=== PATIENT | female | born 1935 | race Caucasian/White ===

== ENCOUNTER 2016-02-09 07:04 | Inpatient (IN) | payer OTHER ==
[~2016-02-09] VITALS: Ht 170.2 cm; Wt 88.8 kg
[~2016-02-09 07:04] MED LIST: ALLOPURINOL300 MG PO; ANTIVERT25 MG PO; ASPIRIN81 M2 PO; AVAPRO75 MG PO; CLARITIN10 M3 PO; COUMADIN,JANTO2.5 MG PO; Coumadin,Jantoven PO; FERROUS SULFAT325 MG PO; IPRATROPIUM BRO30 ML BOTH NARES; METOPROLOL SUCC50 MG PO; PRESERVISION T1 EACH PO; SIMVASTATIN10 M1 PO; TOPROL XL100 MG PO; TOPROL XL50 MG PO; TYLENOL EXTRA500 MG PO; VITAMIN D31000 UNIT PO; VITAMIN D32000 UNI1 PO; WARFARIN SODIUM5 MG PO; eye vitamin
[2016-02-09 07:43] VITALS: BP 166/86
[2016-02-09 08:50] LABS: INTER. NORMALIZED RATIO 1.1; PROTHROMBIN TIME 11.7 (9.2-11.2)
[2016-02-09 13:55] VITALS: BP 143/59
[2016-02-09 15:37] VITALS: BP 115/61
[2016-02-09 19:30] VITALS: BP 117/68
[2016-02-09 23:30] VITALS: BP 120/82
[2016-02-10 04:00] VITALS: BP 135/90
[2016-02-10 05:36] LABS: HEMATOCRIT 33.5 % (36.0-46.0)
[2016-02-10 05:44] LABS: INTER. NORMALIZED RATIO 1.2; PROTHROMBIN TIME 12.2 (9.2-11.2)
[2016-02-10 06:01] LABS: ANION GAP 12 MEQ/L (2-14); CHLORIDE 106 MEQ/L (99-109); GFR ESTIMATE (CALCULATED) 51 mL/min/; GLUCOSE 126 mg/dL (70-99); POTASSIUM 4.3 MEQ/L (3.7-5.4); SAMPLE HEMOLYSIS CHECK 0; SAMPLE ICTERIC CHECK 0; SAMPLE LIPEMIA CHECK 0; SODIUM 138 MEQ/L (136-147); UREA NITROGEN (BUN) 25 mg/dL (9-23)
[2016-02-10 08:00] VITALS: BP 159/82
[2016-02-10 12:00] VITALS: BP 147/87
[2016-02-10 15:54] VITALS: BP 123/60
[2016-02-10 20:03] VITALS: BP 148/78
[2016-02-10 21:30] LABS: INTER. NORMALIZED RATIO 1.3; PROTHROMBIN TIME 13.2 (9.2-11.2); PTT 30.6 (25-32)
[2016-02-10 21:43] LABS: HEMATOCRIT 31.9 % (36.0-46.0); MCHC 32.9 G/DL (30.0-36.0); MCV 103.2 FL (83-99); MEAN PLAT.VOLUME 13.8 uM^3 (9.5-12.4); PLATELET COUNT 125 K/uL (156-360); RBC DIS.WIDTH-CV 14.5 % (11.8-14.6); RBC DIS.WIDTH-SD 54.3 % (39-53); RED BLOOD COUNT 3.09 M/uL (3.80-5.20)
[2016-02-10 21:44] LABS: WHITE BLOOD COUNT 13.7 K/uL (4.1-10.2)
[2016-02-10 23:25] VITALS: BP 137/77
[2016-02-11] VITALS (7 sets, daily range): BP systolic 127–148; BP diastolic 60–92
[2016-02-11 06:19] LABS: EOSINOPHIL (%) 0.1 % (0-5); IMMATURE GRANULOCYTE (%) 0.3 % (0.0-0.7); LYMPHOCYTE COUNT 1.1 K/uL (1.0-2.8); MONOCYTE (%) 10.7 % (3-12); MONOCYTE COUNT 1.3 K/uL (0-0.8); NEUTROPHIL (%) 79.2 % (45-76); NEUTROPHIL COUNT 9.4 K/uL (1.8-6.4)
[2016-02-11 06:25] LABS: INTER. NORMALIZED RATIO 1.3; PROTHROMBIN TIME 13.7 (9.2-11.2)
[2016-02-11 06:44] LABS: ANION GAP 9 MEQ/L (2-14); CHLORIDE 105 MEQ/L (99-109); GFR ESTIMATE (CALCULATED) 56 mL/min/; GLUCOSE 118 mg/dL (70-99); POTASSIUM 4.3 MEQ/L (3.7-5.4); SAMPLE HEMOLYSIS CHECK 0; SAMPLE ICTERIC CHECK 0; SAMPLE LIPEMIA CHECK 0; SODIUM 135 MEQ/L (136-147); UREA NITROGEN (BUN) 34 mg/dL (9-23)
[2016-02-11 07:38] LABS: HEMATOLOGY COMMENT 1 REV; USER ID NJR
[2016-02-11 07:41] LABS: HEMATOCRIT 28.7 % (36.0-46.0); MCH 34.4 PG (29.0-34.0); MCHC 33.4 G/DL (30.0-36.0); MCV 102.9 FL (83-99); MEAN PLAT.VOLUME 13.7 uM^3 (9.5-12.4); PLATELET COUNT 121 K/uL (156-360); RBC DIS.WIDTH-CV 14.7 % (11.8-14.6); RBC DIS.WIDTH-SD 55.3 % (39-53); RED BLOOD COUNT 2.79 M/uL (3.80-5.20); WHITE BLOOD COUNT 11.8 K/uL (4.1-10.2)
[2016-02-11 17:14] LABS: EOSINOPHIL (%) 1.4 % (0-5); EOSINOPHIL COUNT 0.2 K/uL (0-0.3); HEMATOCRIT 29.8 % (36.0-46.0); IMMATURE GRANULOCYTE (%) 0.3 % (0.0-0.7); LYMPHOCYTE COUNT 1.5 K/uL (1.0-2.8); MCHC 33.2 G/DL (30.0-36.0); MCV 102.4 FL (83-99); MEAN PLAT.VOLUME 13.3 uM^3 (9.5-12.4); MONOCYTE (%) 11.8 % (3-12); MONOCYTE COUNT 1.6 K/uL (0-0.8); NEUTROPHIL (%) 74.6 % (45-76); NEUTROPHIL COUNT 9.8 K/uL (1.8-6.4); PLATELET COUNT 123 K/uL (156-360); RBC DIS.WIDTH-CV 14.6 % (11.8-14.6); RBC DIS.WIDTH-SD 54.3 % (39-53); RED BLOOD COUNT 2.91 M/uL (3.80-5.20); WHITE BLOOD COUNT 13.2 K/uL (4.1-10.2)
[2016-02-12 05:27] LABS: COLOR YELLOW ((YELLOW))
[2016-02-12 05:28] LABS: ADD MIUA? YES; BILIRUBIN NEGATIVE; BLOOD TRACE; GLUCOSE (STRIP) NEGATIVE; KETONES NEGATIVE; LEUKOCYTES NEGATIVE; NITRITE NEGATIVE; PH, URINE 5.5 (5-8); SPECIFIC GRAVITY 1.022 (1.000-1.030); UROBILINOGEN 0.2 MG/DL (0.2-1.0)
[2016-02-12 05:29] LABS: PROTEIN (STRIP) TRACE
[2016-02-12 05:42] LABS: CASTS NONE SEEN /LPF; EPITHELIAL CELLS NONE SEEN; MUCUS NONE SEEN
[2016-02-12 05:43] LABS: BACTERIA NONE SEEN; CRYSTALS NONE SEEN; RED BLOOD CELLS RARE /HPF (0-5); UCUL ADDED? NO; WHITE BLOOD CELLS NONE SEEN /HPF (0-5)
[2016-02-12 06:20] LABS: INTER. NORMALIZED RATIO 1.5; PROTHROMBIN TIME 15.9 (9.2-11.2)
[2016-02-12 08:16] LABS: ANION GAP 10 MEQ/L (2-14); CHLORIDE 104 MEQ/L (99-109); GFR ESTIMATE (CALCULATED) 56 mL/min/; GLUCOSE 112 mg/dL (70-99); POTASSIUM 4.2 MEQ/L (3.7-5.4); SAMPLE HEMOLYSIS CHECK 0; SAMPLE ICTERIC CHECK 0; SAMPLE LIPEMIA CHECK 0; SODIUM 136 MEQ/L (136-147); UREA NITROGEN (BUN) 34 mg/dL (9-23)
[2016-02-12 08:30] VITALS: BP 163/73
[2016-02-12 10:28] LABS: HEMATOCRIT 29.9 % (36.0-46.0); MCH 33.8 PG (29.0-34.0); MCHC 32.8 G/DL (30.0-36.0); MCV 103.1 FL (83-99); MEAN PLAT.VOLUME 13.5 uM^3 (9.5-12.4); PLATELET COUNT 130 K/uL (156-360); RBC DIS.WIDTH-CV 15.1 % (11.8-14.6); RBC DIS.WIDTH-SD 55.6 % (39-53); WHITE BLOOD COUNT 10.6 K/uL (4.1-10.2)
[2016-02-12 11:30] VITALS: BP 127/63
[2016-02-12 16:30] VITALS: BP 162/78
[2016-02-12 20:31] VITALS: BP 111/59
[2016-02-13 00:07] VITALS: BP 133/68
[2016-02-13 04:31] VITALS: BP 138/72
[2016-02-13 07:15] LABS: INTER. NORMALIZED RATIO 3.5; PROTHROMBIN TIME 36.8 (9.2-11.2)
[2016-02-13 08:21] VITALS: BP 130/59
[2016-02-13 11:30] VITALS: BP 112/53
[2016-02-13 15:30] VITALS: BP 154/67
[2016-02-13 20:29] VITALS: BP 135/62
[2016-02-14 00:16] VITALS: BP 139/81
[2016-02-14 03:49] VITALS: BP 148/84
[2016-02-14 05:56] LABS: INTER. NORMALIZED RATIO 1.6; PROTHROMBIN TIME 16.3 (9.2-11.2)
[2016-02-14 08:14] VITALS: BP 136/90
== END 2016-02-14 11:47 | DRG 469 ==
LOC: 2SOUTH 07:04 → 3WEST 07:04 → 2SOUTH 10:49 → 3WEST 13:32 → 2SOUTH 14:57 → 3WEST 02-11 06:59 → 3EAST 02-11 14:29
PROVIDERS: Hospitalist; Orthopaedic Surgery
PROC: 0SRC0J9 Replacement of Right Knee Joint with Synthetic Substitute, Cemented, Open Approach (ICD-10-PCS; principal; 2016-02-09)
DX: M17.11 Unilateral primary osteoarthritis, right knee (principal); G93.40 Encephalopathy, unspecified; K92.0 Hematemesis; R57.9 Shock, unspecified; I10 Essential (primary) hypertension; M21.061 Valgus deformity, not elsewhere classified, right knee; M10.9 Gout, unspecified; I48.2 Chronic atrial fibrillation; E78.5 Hyperlipidemia, unspecified; R41.0 Disorientation, unspecified; R33.9 Retention of urine, unspecified; M81.0 Age-related osteoporosis without current pathological fracture; T40.605A Adverse effect of unspecified narcotics, initial encounter; Z96.641 Presence of right artificial hip joint; Z96.652 Presence of left artificial knee joint; Z88.5 Allergy status to narcotic agent; Z95.0 Presence of cardiac pacemaker; Z85.3 Personal history of malignant neoplasm of breast; Z79.82 Long term (current) use of aspirin; Z80.1 Family history of malignant neoplasm of trachea, bronchus and lung; Z82.49 Family history of ischemic heart disease and other diseases of the circulatory system
CPT/HCPCS: 70450; 71010; 74176; 80048; 81003; 85014; 85018; 85025; 85025 91; 85027; 85610; 85730; 94799; 97530 GO; 97530 GP; C9113; J0690; J1885; J2060; J2250; J2370; J2405; J3010; J3370; J7030; J7050; J7120; S0020

== ENCOUNTER 2016-02-25 17:13 | Inpatient (IN) | payer OTHER ==
[~2016-02-25] VITALS: Ht 167.6 cm; Wt 87.0 kg
[2016-02-25] MEDS ORDERED: FEOSOL325 MG PO (17:51)
[2016-02-25] MEDS ORDERED: DULCOLAX10 MG PR (17:51)
[2016-02-25] MEDS ORDERED: FUROSEMIDE20 MG PO (17:52)
[2016-02-25] MEDS ORDERED: IPRATROPIUM BRO30 ML IH (17:52)
[2016-02-25] MEDS ORDERED: LORATADINE10 M2 PO (17:53)
[2016-02-25] MEDS ORDERED: LIDODERM 5% P1 PATCH TD (17:53)
[2016-02-25] MEDS ORDERED: METOPROLOL SUC100 MG PO (17:54)
[2016-02-25] MEDS ORDERED: MECLIZINE HCL25 MG PO (17:54)
[2016-02-25] MEDS ORDERED: METOPROLOL SUCC50 MG PO (17:55)
[2016-02-25] MEDS ORDERED: MILK OF MAGN PO (17:56)
[2016-02-25] MEDS ORDERED: PRESERVISION T1 EACH PO (17:57)
[2016-02-25] MEDS ORDERED: MIRALAX17 GM PO (17:57)
[2016-02-25] MEDS ORDERED: SIMETHICONE125 M1 PO (17:58)
[2016-02-25] MEDS ORDERED: TRAMADOL HCL50 MG PO (17:58)
[2016-02-25] MEDS ORDERED: TUMS500 MG PO (18:00)
[2016-02-25 18:23] LABS: EOSINOPHIL (%) 2.7 % (0-5); EOSINOPHIL COUNT 0.2 K/uL (0-0.3); HEMATOCRIT 29.7 % (36.0-46.0); IMMATURE GRANULOCYTE (%) 0.3 % (0.0-0.7); IMMATURE GRANULOCYTE COUNT 0.3 K/uL; LYMPHOCYTE COUNT 1.5 K/uL (1.0-2.8); MCH 33.4 PG (29.0-34.0); MCHC 33.3 G/DL (30.0-36.0); MCV 100.3 FL (83-99); MONOCYTE (%) 8.6 % (3-12); MONOCYTE COUNT 0.8 K/uL (0-0.8); NEUTROPHIL (%) 70.4 % (45-76); NEUTROPHIL COUNT 6.2 K/uL (1.8-6.4); RBC DIS.WIDTH-CV 15.5 % (11.8-14.6); RED BLOOD COUNT 2.96 M/uL (3.80-5.20)
[2016-02-25 18:30] LABS: MEAN PLAT.VOLUME 12.7 uM^3 (9.5-12.4); PLATELET COUNT 239 K/uL (156-360); WHITE BLOOD COUNT 8.8 K/uL (4.1-10.2)
[2016-02-25 18:33] LABS: CHLORIDE 97 mEq/L (99-109); POTASSIUM 4.6 mEq/L (3.7-5.4); SODIUM 129 mEq/L (136-147)
[2016-02-25 18:34] LABS: MAGNESIUM 1.8 mg/dL (1.3-2.7)
[2016-02-25 18:35] LABS: GLUCOSE 106 mg/dL (70-99)
[2016-02-25 18:36] LABS: ANION GAP 13 MEQ/L (2-14)
[2016-02-25 18:38] LABS: INTER. NORMALIZED RATIO 3.4; PROTHROMBIN TIME 35.5 (9.2-11.2); PTT 37.6 (25-32)
[2016-02-25 18:39] LABS: GFR ESTIMATE (CALCULATED) 38 mL/min/
[2016-02-25 18:40] LABS: UREA NITROGEN (BUN) 33 mg/dL (9-23)
[2016-02-25 18:47] LABS: TROP-I INTERPRETATION POSITIVE
[2016-02-25 18:55] LABS: TROPONIN-I 1.38 ng/mL (0.0-0.30)
[2016-02-25 22:00] VITALS: BP 115/59
[2016-02-26 01:57] LABS: TROP-I INTERPRETATION POSITIVE
[2016-02-26 01:58] LABS: TROPONIN-I 1.22 ng/mL (0.0-0.30)
[2016-02-26 03:28] VITALS: BP 113/65
[2016-02-26 07:10] VITALS: BP 118/67
[2016-02-26 08:59] LABS: ALKALINE PHOSPHATASE 67 IU/L (3-129); ANION GAP 12 MEQ/L (2-14); CHLORIDE 98 MEQ/L (99-109); GFR ESTIMATE (CALCULATED) 38 mL/min/; GLUCOSE 87 mg/dL (70-99); POTASSIUM 4.3 MEQ/L (3.7-5.4); SAMPLE HEMOLYSIS CHECK 0; SAMPLE ICTERIC CHECK 0; SAMPLE LIPEMIA CHECK 0; SODIUM 132 MEQ/L (136-147); UREA NITROGEN (BUN) 32 mg/dL (9-23)
[2016-02-26 09:01] LABS: HEMATOCRIT 29.3 % (36.0-46.0); MCHC 32.8 G/DL (30.0-36.0); MCV 100.7 FL (83-99); MEAN PLAT.VOLUME 12.7 uM^3 (9.5-12.4); PLATELET COUNT 225 K/uL (156-360); RBC DIS.WIDTH-CV 15.9 % (11.8-14.6); RED BLOOD COUNT 2.91 M/uL (3.80-5.20); WHITE BLOOD COUNT 7.8 K/uL (4.1-10.2)
[2016-02-26 09:03] VITALS: BP 104/67
[2016-02-26 09:10] LABS: TROP-I INTERPRETATION POSITIVE
[2016-02-26 11:51] LABS: INTER. NORMALIZED RATIO 3.8; PROTHROMBIN TIME 40.4 (9.2-11.2)
[2016-02-26 12:18] VITALS: BP 108/53
[2016-02-26 17:05] VITALS: BP 92/58
[2016-02-26 21:00] VITALS: BP 126/58
[2016-02-27 00:25] VITALS: BP 99/58
[2016-02-27 05:14] VITALS: BP 124/57
[2016-02-27 05:18] LABS: EOSINOPHIL COUNT 0.3 K/uL (0-0.3); HEMATOCRIT 28.2 % (36.0-46.0); IMMATURE GRANULOCYTE (%) 0.4 % (0.0-0.7); LYMPHOCYTE COUNT 1.7 K/uL (1.0-2.8); MCH 32.6 PG (29.0-34.0); MCHC 32.3 G/DL (30.0-36.0); MCV 101.1 FL (83-99); MEAN PLAT.VOLUME 12.6 uM^3 (9.5-12.4); MONOCYTE (%) 10.9 % (3-12); MONOCYTE COUNT 0.7 K/uL (0-0.8); NEUTROPHIL (%) 58.4 % (45-76); NEUTROPHIL COUNT 3.9 K/uL (1.8-6.4); PLATELET COUNT 216 K/uL (156-360); RBC DIS.WIDTH-SD 57.4 % (39-53); RED BLOOD COUNT 2.79 M/uL (3.80-5.20); WHITE BLOOD COUNT 6.7 K/uL (4.1-10.2)
[2016-02-27 05:43] LABS: ANION GAP 12 MEQ/L (2-14); CHLORIDE 99 MEQ/L (99-109); GFR ESTIMATE (CALCULATED) 42 mL/min/; GLUCOSE 105 mg/dL (70-99); POTASSIUM 3.6 MEQ/L (3.7-5.4); SAMPLE HEMOLYSIS CHECK 0; SAMPLE ICTERIC CHECK 0; SAMPLE LIPEMIA CHECK 0; SODIUM 134 MEQ/L (136-147); UREA NITROGEN (BUN) 32 mg/dL (9-23)
[2016-02-27 05:44] LABS: TROP-I INTERPRETATION POSITIVE
[2016-02-27 05:45] LABS: TROPONIN-I 0.68 ng/mL (0.0-0.30)
[2016-02-27 06:12] LABS: INTER. NORMALIZED RATIO 5.1; PROTHROMBIN TIME 54.7 (9.2-11.2)
[2016-02-27 09:30] VITALS: BP 109/56
[2016-02-27 12:49] VITALS: BP 107/61
[2016-02-27 15:45] VITALS: BP 116/57
[2016-02-27 20:42] VITALS: BP 104/58
[2016-02-28] VITALS (7 sets, daily range): BP systolic 105–126; BP diastolic 59–68
[2016-02-28 05:54] LABS: HEMATOCRIT 29.2 % (36.0-46.0); MCHC 32.9 G/DL (30.0-36.0); MCV 100.3 FL (83-99); MEAN PLAT.VOLUME 12.7 uM^3 (9.5-12.4); PLATELET COUNT 226 K/uL (156-360); RBC DIS.WIDTH-CV 16.4 % (11.8-14.6); RBC DIS.WIDTH-SD 58.4 % (39-53); RED BLOOD COUNT 2.91 M/uL (3.80-5.20); WHITE BLOOD COUNT 6.5 K/uL (4.1-10.2)
[2016-02-28 06:31] LABS: ANION GAP 12 MEQ/L (2-14); CHLORIDE 99 MEQ/L (99-109); GFR ESTIMATE (CALCULATED) 35 mL/min/; GLUCOSE 129 mg/dL (70-99); SAMPLE HEMOLYSIS CHECK 0; SAMPLE ICTERIC CHECK 0; SAMPLE LIPEMIA CHECK 0; SODIUM 136 MEQ/L (136-147); UREA NITROGEN (BUN) 30 mg/dL (9-23)
[2016-02-28 06:33] LABS: POTASSIUM 2.8 MEQ/L (3.7-5.4)
[2016-02-28 06:37] LABS: ABS NEUTROPHIL COUNT 4.31; ANISOCYTOSIS 2+; EOSINOPHIL ABS CT 0.85; MACROCYTES 1+; MICROCYTOSIS 1+; OVALOCYTES 1+; PLAT.SUFFICIENCY ADEQUATE; SPHEROCYTES 1+
[2016-02-28 06:43] LABS: INTER. NORMALIZED RATIO 3.7; PROTHROMBIN TIME 38.8 (9.2-11.2)
[2016-02-29 05:05] VITALS: BP 112/58
[2016-02-29 06:34] LABS: HEMATOCRIT 29.9 % (36.0-46.0); MCH 32.5 PG (29.0-34.0); MCHC 32.1 G/DL (30.0-36.0); MCV 101.4 FL (83-99); MEAN PLAT.VOLUME 12.6 uM^3 (9.5-12.4); PLATELET COUNT 214 K/uL (156-360); RBC DIS.WIDTH-CV 16.5 % (11.8-14.6); RBC DIS.WIDTH-SD 59.3 % (39-53); RED BLOOD COUNT 2.95 M/uL (3.80-5.20); WHITE BLOOD COUNT 6.8 K/uL (4.1-10.2)
[2016-02-29 06:48] LABS: INTER. NORMALIZED RATIO 2.7; PROTHROMBIN TIME 28.8 (9.2-11.2)
[2016-02-29 06:51] LABS: EOSINOPHIL (%) 5.6 % (0-5); EOSINOPHIL COUNT 0.4 K/uL (0-0.3); IMMATURE GRANULOCYTE (%) 0.4 % (0.0-0.7); LYMPHOCYTE COUNT 1.8 K/uL (1.0-2.8); MONOCYTE (%) 11.3 % (3-12); MONOCYTE COUNT 0.8 K/uL (0-0.8); NEUTROPHIL (%) 55.9 % (45-76); NEUTROPHIL COUNT 3.8 K/uL (1.8-6.4)
[2016-02-29 07:09] LABS: ANION GAP 14 MEQ/L (2-14); CHLORIDE 98 MEQ/L (99-109); GFR ESTIMATE (CALCULATED) 35 mL/min/; GLUCOSE 103 mg/dL (70-99); SAMPLE HEMOLYSIS CHECK 0; SAMPLE ICTERIC CHECK 0; SAMPLE LIPEMIA CHECK 0; SODIUM 137 MEQ/L (136-147); UREA NITROGEN (BUN) 28 mg/dL (9-23)
[2016-02-29 07:11] VITALS: BP 115/65
[2016-02-29 07:18] LABS: POTASSIUM 3.5 MEQ/L (3.7-5.4)
[2016-02-29 12:33] VITALS: BP 116/76
[2016-02-29 16:28] VITALS: BP 142/66
[2016-02-29 19:40] VITALS: BP 118/65
[2016-03-01] VITALS: BP 99/62
[2016-03-01 04:00] VITALS: BP 103/63
[2016-03-01 06:41] LABS: HEMATOCRIT 28.2 % (36.0-46.0); MCHC 32.3 G/DL (30.0-36.0); MCV 102.2 FL (83-99); MEAN PLAT.VOLUME 12.9 uM^3 (9.5-12.4); PLATELET COUNT 183 K/uL (156-360); RBC DIS.WIDTH-CV 16.8 % (11.8-14.6); RBC DIS.WIDTH-SD 60.9 % (39-53); RED BLOOD COUNT 2.76 M/uL (3.80-5.20); WHITE BLOOD COUNT 5.4 K/uL (4.1-10.2)
[2016-03-01 06:47] LABS: INTER. NORMALIZED RATIO 2.1; PROTHROMBIN TIME 21.6 (9.2-11.2)
[2016-03-01 06:56] LABS: ANION GAP 11 MEQ/L (2-14); CHLORIDE 101 MEQ/L (99-109); POTASSIUM 3.3 MEQ/L (3.7-5.4); SAMPLE HEMOLYSIS CHECK 0; SAMPLE ICTERIC CHECK 0; SAMPLE LIPEMIA CHECK 0; SODIUM 139 MEQ/L (136-147)
[2016-03-01 07:02] LABS: GFR ESTIMATE (CALCULATED) 33 mL/min/; GLUCOSE 97 mg/dL (70-99); UREA NITROGEN (BUN) 25 mg/dL (9-23)
[2016-03-01 07:08] LABS: EOSINOPHIL (%) 6.9 % (0-5); EOSINOPHIL COUNT 0.4 K/uL (0-0.3); IMMATURE GRANULOCYTE (%) 0.4 % (0.0-0.7); LYMPHOCYTE COUNT 1.6 K/uL (1.0-2.8); MONOCYTE (%) 10.9 % (3-12); MONOCYTE COUNT 0.6 K/uL (0-0.8); NEUTROPHIL COUNT 2.8 K/uL (1.8-6.4)
[2016-03-01 07:23] VITALS: BP 124/70
[2016-03-01 11:56] VITALS: BP 111/59
[2016-03-01 20:30] VITALS: BP 101/71
[2016-03-01 23:09] VITALS: BP 128/65
[2016-03-02] VITALS (7 sets, daily range): BP systolic 99–112; BP diastolic 55–64
[2016-03-02 07:26] LABS: PROTHROMBIN TIME 21.1 (9.2-11.2)
[2016-03-02 07:50] LABS: ANION GAP 11 MEQ/L (2-14); CHLORIDE 99 MEQ/L (99-109); GFR ESTIMATE (CALCULATED) 38 mL/min/; GLUCOSE 94 mg/dL (70-99); POTASSIUM 3.2 MEQ/L (3.7-5.4); SAMPLE HEMOLYSIS CHECK 0; SAMPLE ICTERIC CHECK 0; SAMPLE LIPEMIA CHECK 0; SODIUM 138 MEQ/L (136-147); UREA NITROGEN (BUN) 25 mg/dL (9-23)
[2016-03-02] MEDS ORDERED: CLEOCIN150 MG PO (10:37)
[2016-03-02] MEDS ORDERED: PANTOPRAZOLE SO40 MG PO (10:38)
[2016-03-02] MEDS ORDERED: KLOR-CON SPRIN10 MEQ PO (10:47)
[2016-03-02] MEDS ORDERED: FUROSEMIDE40 MG PO (10:47)
== END 2016-03-02 18:34 | DRG 292 ==
LOC: EME → EDBD 17:13 → EME 17:13 → 4EAST 20:48 → EDOF 20:48 → 4EAST 21:52
PROVIDERS: Emergency Medicine; Internal Medicine; Internal Medicine Cardiovascular Disease
PROC: 30233N1 Transfusion of Nonautologous Red Blood Cells into Peripheral Vein, Percutaneous Approach (ICD-10-PCS; principal; 2016-03-02)
DX: I11.0 Hypertensive heart disease with heart failure (principal); I50.9 Heart failure, unspecified; N17.9 Acute kidney failure, unspecified; I24.8 Other forms of acute ischemic heart disease; I45.2 Bifascicular block; L03.115 Cellulitis of right lower limb; E87.6 Hypokalemia; I48.2 Chronic atrial fibrillation; I25.10 Atherosclerotic heart disease of native coronary artery without angina pectoris; E78.5 Hyperlipidemia, unspecified; M10.9 Gout, unspecified; I35.0 Nonrheumatic aortic (valve) stenosis; I27.2 Other secondary pulmonary hypertension; D64.9 Anemia, unspecified; G43.909 Migraine, unspecified, not intractable, without status migrainosus; G89.29 Other chronic pain; Z96.653 Presence of artificial knee joint, bilateral; Z96.641 Presence of right artificial hip joint; Z95.0 Presence of cardiac pacemaker; Z79.82 Long term (current) use of aspirin; Z88.5 Allergy status to narcotic agent; Z85.3 Personal history of malignant neoplasm of breast; Z95.5 Presence of coronary angioplasty implant and graft; Z79.01 Long term (current) use of anticoagulants
CPT/HCPCS: 71010; 80048; 80053; 83735; 84484; 85025; 85027; 85610; 85730; 86850; 86900; 86901; 86920; 93005; 99281; 99285; G0378; J1940; J3480; P9016

== ENCOUNTER 2016-03-14 16:36 | Inpatient (IN) | payer OTHER ==
[~2016-03-14] VITALS: Ht 170.2 cm; Wt 93.7 kg
[~2016-03-14 16:36] MED LIST changes: +CLEOCIN150 MG PO; +DULCOLAX10 MG PR; +FEOSOL325 MG PO; +FUROSEMIDE20 MG PO; +FUROSEMIDE40 MG PO; +IPRATROPIUM BRO30 ML IH; +KLOR-CON SPRIN10 MEQ PO; +LIDODERM 5% P1 PATCH TD; +LORATADINE10 M2 PO; +MECLIZINE HCL25 MG PO; +METOPROLOL SUC100 MG PO; +MILK OF MAGN PO; +MIRALAX17 GM PO; +PANTOPRAZOLE SO40 MG PO; +SIMETHICONE125 M1 PO; +TRAMADOL HCL50 MG PO; +TUMS500 MG PO
[2016-03-14 17:44] LABS: BASE EXCESS -3.7 mEq/L (-3 to +3); BICARBONATE 20.4 mEq/L (22-26); CARBOXY HGB 1.8 % (0-5); COMMENTS - BLOOD GASES A+C+; DEVICE NC; O2 FLOW 6 L/MIN; PCO2 33 mm Hg (35-45); PO2 149 mm Hg (80-100); SITE LR; TOTAL RESP RATE 20 resp/min
[2016-03-14 17:54] LABS: BASOPHIL COUNT 0.1 K/uL (0-0.1); EOSINOPHIL (%) 4.8 % (0-5); EOSINOPHIL COUNT 0.4 K/uL (0-0.3); IMMATURE GRANULOCYTE (%) 0.1 % (0.0-0.7); IMMATURE GRANULOCYTE COUNT 0.1 K/uL; MCH 32.8 PG (29.0-34.0); MCHC 32.1 G/DL (30.0-36.0); MCV 102.2 FL (83-99); MONOCYTE (%) 12.3 % (3-12); MONOCYTE COUNT 1.1 K/uL (0-0.8); NEUTROPHIL (%) 59.3 % (45-76); NEUTROPHIL COUNT 5.1 K/uL (1.8-6.4); RBC DIS.WIDTH-CV 16.7 % (11.8-14.6); RBC DIS.WIDTH-SD 59.7 % (39-53); RED BLOOD COUNT 3.23 M/uL (3.80-5.20); WHITE BLOOD COUNT 8.6 K/uL (4.1-10.2)
[2016-03-14 17:57] LABS: CHLORIDE 104 mEq/L (99-109); INTER. NORMALIZED RATIO 3.2; POTASSIUM 4.7 mEq/L (3.7-5.4); PROTHROMBIN TIME 33.7 (9.2-11.2); PTT 36.5 (25-32); SODIUM 137 mEq/L (136-147)
[2016-03-14 17:58] LABS: MAGNESIUM 1.8 mg/dL (1.3-2.7)
[2016-03-14 17:59] LABS: GLUCOSE 109 mg/dL (70-99)
[2016-03-14 18:00] LABS: ANION GAP 12 MEQ/L (2-14)
[2016-03-14 18:03] LABS: GFR ESTIMATE (CALCULATED) 29 mL/min/
[2016-03-14 18:04] LABS: UREA NITROGEN (BUN) 36 mg/dL (9-23)
[2016-03-14 18:10] LABS: TROP-I INTERPRETATION NEGATIVE; TROPONIN-I 0.05 ng/mL (0.0-0.30)
[2016-03-14 18:20] LABS: INFLUENZA A VIRAL ANTIGEN NEGATIVE; INFLUENZA B VIRAL ANTIGEN NEGATIVE
[2016-03-14 18:40] LABS: MEAN PLAT.VOLUME 13.5 uM^3 (9.5-12.4); PLAT.SUFFICIENCY DECREASED; PLATELET COUNT 144 K/uL (156-360)
[2016-03-14] MEDS ORDERED: KLOR-CON SPRIN10 MEQ PO (20:42)
[2016-03-14] MEDS ORDERED: LASIX20 MG PO (20:47)
[2016-03-14] MEDS ORDERED: OMEPRAZOLE20 MG PO (20:56)
[2016-03-14 23:10] VITALS: BP 101/74
[2016-03-14 23:30] VITALS: BP 101/75
[2016-03-15 00:04] LABS: TROP-I INTERPRETATION NEGATIVE; TROPONIN-I 0.05 ng/mL (0.0-0.30)
[2016-03-15 05:36] LABS: INTER. NORMALIZED RATIO 2.9; PROTHROMBIN TIME 30.8 (9.2-11.2)
[2016-03-15 05:41] LABS: TROP-I INTERPRETATION NEGATIVE; TROPONIN-I 0.05 ng/mL (0.0-0.30)
[2016-03-15 06:31] VITALS: BP 102/76
[2016-03-15 07:32] VITALS: BP 145/89
[2016-03-15 11:03] VITALS: BP 116/58
[2016-03-15 14:57] VITALS: BP 120/68
[2016-03-15 19:19] VITALS: BP 136/75
[2016-03-16] VITALS: BP 112/65
[2016-03-16 04:00] VITALS: BP 112/63
[2016-03-16 06:57] LABS: INTER. NORMALIZED RATIO 2.8; PROTHROMBIN TIME 29.1 (9.2-11.2)
[2016-03-16 07:40] VITALS: BP 100/76
[2016-03-16 09:22] LABS: ANION GAP 12 MEQ/L (2-14); CHLORIDE 104 MEQ/L (99-109); GFR ESTIMATE (CALCULATED) 35 mL/min/; GLUCOSE 102 mg/dL (70-99); SAMPLE HEMOLYSIS CHECK 0; SAMPLE ICTERIC CHECK 0; SAMPLE LIPEMIA CHECK 0; SODIUM 139 MEQ/L (136-147); UREA NITROGEN (BUN) 32 mg/dL (9-23)
[2016-03-16 09:23] LABS: POTASSIUM 3.6 MEQ/L (3.7-5.4)
[2016-03-16 10:39] LABS: HEMATOCRIT 32.4 % (36.0-46.0); MCHC 32.7 G/DL (30.0-36.0); MCV 100.9 FL (83-99); RBC DIS.WIDTH-CV 17.4 % (11.8-14.6); RBC DIS.WIDTH-SD 62.9 % (39-53); RED BLOOD COUNT 3.21 M/uL (3.80-5.20); WHITE BLOOD COUNT 7.5 K/uL (4.1-10.2)
[2016-03-16 10:52] LABS: MEAN PLAT.VOLUME 13.5 uM^3 (9.5-12.4); PLATELET COUNT 159 K/uL (156-360)
[2016-03-16 15:07] VITALS: BP 152/89
[2016-03-16 20:11] VITALS: BP 111/66
[2016-03-17] VITALS: BP 115/63
[2016-03-17 04:00] VITALS: BP 117/70
[2016-03-17 07:12] LABS: INTER. NORMALIZED RATIO 3.1; PROTHROMBIN TIME 32.6 (9.2-11.2)
[2016-03-17 07:34] VITALS: BP 120/76
[2016-03-17 09:28] LABS: HEMATOCRIT 30.9 % (36.0-46.0); MCH 32.5 PG (29.0-34.0); MCHC 31.7 G/DL (30.0-36.0); MCV 102.3 FL (83-99); RBC DIS.WIDTH-CV 17.6 % (11.8-14.6); RBC DIS.WIDTH-SD 64.5 % (39-53); RED BLOOD COUNT 3.02 M/uL (3.80-5.20); WHITE BLOOD COUNT 6.9 K/uL (4.1-10.2)
[2016-03-17 09:50] LABS: ANION GAP 12 MEQ/L (2-14); CHLORIDE 106 MEQ/L (99-109); GFR ESTIMATE (CALCULATED) 42 mL/min/; GLUCOSE 103 mg/dL (70-99); POTASSIUM 3.3 MEQ/L (3.7-5.4); SAMPLE HEMOLYSIS CHECK 0; SAMPLE ICTERIC CHECK 0; SAMPLE LIPEMIA CHECK 0; SODIUM 142 MEQ/L (136-147); UREA NITROGEN (BUN) 28 mg/dL (9-23)
[2016-03-17 11:06] VITALS: BP 119/72
[2016-03-17 13:06] LABS: PLATELET COUNT 152 K/uL (156-360)
[2016-03-17 14:56] VITALS: BP 106/67
[2016-03-17 20:00] VITALS: BP 123/59
[2016-03-18] VITALS (7 sets, daily range): BP systolic 119–175; BP diastolic 60–73
[2016-03-18 07:32] LABS: INTER. NORMALIZED RATIO 2.9; PROTHROMBIN TIME 30.7 (9.2-11.2)
[2016-03-18 15:58] LABS: HEMATOCRIT 32.4 % (36.0-46.0); MCH 33.2 PG (29.0-34.0); MCHC 32.7 G/DL (30.0-36.0); MCV 101.6 FL (83-99); MEAN PLAT.VOLUME 12.9 uM^3 (9.5-12.4); PLATELET COUNT 167 K/uL (156-360); RBC DIS.WIDTH-CV 17.6 % (11.8-14.6); RED BLOOD COUNT 3.19 M/uL (3.80-5.20); WHITE BLOOD COUNT 7.7 K/uL (4.1-10.2)
[2016-03-18 16:26] LABS: ANION GAP 11 MEQ/L (2-14); CHLORIDE 104 MEQ/L (99-109); GFR ESTIMATE (CALCULATED) 46 mL/min/; GLUCOSE 139 mg/dL (70-99); POTASSIUM 3.6 MEQ/L (3.7-5.4); SAMPLE HEMOLYSIS CHECK 0; SAMPLE ICTERIC CHECK 0; SAMPLE LIPEMIA CHECK 0; SODIUM 142 MEQ/L (136-147); UREA NITROGEN (BUN) 24 mg/dL (9-23)
[2016-03-19 07:30] VITALS: BP 110/69
[2016-03-19 08:03] LABS: INTER. NORMALIZED RATIO 2.9; PROTHROMBIN TIME 30.3 (9.2-11.2)
[2016-03-19 16:00] VITALS: BP 115/64
[2016-03-20 00:34] VITALS: BP 118/75
[2016-03-20 08:26] VITALS: BP 117/67
[2016-03-20 08:37] LABS: INTER. NORMALIZED RATIO 2.7; PROTHROMBIN TIME 28.1 (9.2-11.2)
[2016-03-20 15:33] VITALS: BP 128/87
[2016-03-21] VITALS: BP 105/61
[2016-03-21 04:00] VITALS: BP 147/66
[2016-03-21 08:45] LABS: INTER. NORMALIZED RATIO 2.7; PROTHROMBIN TIME 28.3 (9.2-11.2)
[2016-03-21 09:02] LABS: HEMATOCRIT 31.4 % (36.0-46.0); MCH 33.1 PG (29.0-34.0); MCHC 32.5 G/DL (30.0-36.0); MCV 101.9 FL (83-99); RBC DIS.WIDTH-CV 17.7 % (11.8-14.6); RBC DIS.WIDTH-SD 64.8 % (39-53); RED BLOOD COUNT 3.08 M/uL (3.80-5.20); WHITE BLOOD COUNT 6.5 K/uL (4.1-10.2)
[2016-03-21 09:20] LABS: ANION GAP 12 MEQ/L (2-14); CHLORIDE 102 MEQ/L (99-109); GFR ESTIMATE (CALCULATED) 46 mL/min/; GLUCOSE 106 mg/dL (70-99); POTASSIUM 3.4 MEQ/L (3.7-5.4); SAMPLE HEMOLYSIS CHECK 0; SAMPLE ICTERIC CHECK 0; SAMPLE LIPEMIA CHECK 0; SODIUM 142 MEQ/L (136-147); UREA NITROGEN (BUN) 21 mg/dL (9-23)
[2016-03-21 11:35] VITALS: BP 122/58
[2016-03-21 12:34] LABS: HEMATOLOGY COMMENT 1 REV
[2016-03-21 12:36] LABS: MEAN PLAT.VOLUME 13.1 uM^3 (9.5-12.4); PLATELET COUNT 154 K/uL (156-360)
[2016-03-21] MEDS ORDERED: BENZONATATE100 MG PO (12:43)
[2016-03-21 15:12] VITALS: BP 125/62
== END 2016-03-21 17:01 | DRG 292 ==
LOC: EME 16:36 → EDOF 20:48 → 5SOUTH 20:48
PROVIDERS: Emergency Medicine; Hospitalist; Internal Medicine; Nurse Practitioner Adult Health; Physician Assistant
DX: I50.33 Acute on chronic diastolic (congestive) heart failure (principal); N17.9 Acute kidney failure, unspecified; J90 Pleural effusion, not elsewhere classified; I12.9 Hypertensive chronic kidney disease with stage 1 through stage 4 chronic kidney disease, or unspecified chronic kidney disease; I25.10 Atherosclerotic heart disease of native coronary artery without angina pectoris; N18.3 Chronic kidney disease, stage 3 (moderate); E78.5 Hyperlipidemia, unspecified; K21.9 Gastro-esophageal reflux disease without esophagitis; I48.2 Chronic atrial fibrillation; I48.0 Paroxysmal atrial fibrillation; I35.0 Nonrheumatic aortic (valve) stenosis; I49.5 Sick sinus syndrome; R06.00 Dyspnea, unspecified; R94.31 Abnormal electrocardiogram [ECG] [EKG]; M25.561 Pain in right knee; E87.6 Hypokalemia; Z88.6 Allergy status to analgesic agent; Z79.01 Long term (current) use of anticoagulants; Z96.653 Presence of artificial knee joint, bilateral; Z96.641 Presence of right artificial hip joint
CPT/HCPCS: 36600; 71010; 71020; 71250; 80048; 80048 91; 82803; 83735; 83880; 84484; 85025; 85027; 85610; 85730; 87502; 93005; 93306; 93971; 94640; 94799; 99202; 99281; 99285; J1940

== ENCOUNTER 2016-03-30 18:58 | Inpatient (IN) | payer OTHER ==
[~2016-03-30] VITALS: Ht 167.6 cm; Wt 77.3 kg
[~2016-03-30 18:58] MED LIST changes: +BENZONATATE100 MG PO; +LASIX20 MG PO; +OMEPRAZOLE20 MG PO
[2016-03-30 19:53] LABS: EOSINOPHIL (%) 3.5 % (0-5); EOSINOPHIL COUNT 0.2 K/uL (0-0.3); HEMATOCRIT 32.6 % (36.0-46.0); IMMATURE GRANULOCYTE (%) 0.2 % (0.0-0.7); IMMATURE GRANULOCYTE COUNT 0.1 K/uL; LYMPHOCYTE COUNT 1.2 K/uL (1.0-2.8); MCH 32.9 PG (29.0-34.0); MCHC 32.5 G/DL (30.0-36.0); MCV 101.2 FL (83-99); MONOCYTE (%) 11.2 % (3-12); MONOCYTE COUNT 0.7 K/uL (0-0.8); NEUTROPHIL (%) 66.3 % (45-76); NEUTROPHIL COUNT 4.4 K/uL (1.8-6.4); RBC DIS.WIDTH-CV 16.9 % (11.8-14.6); RBC DIS.WIDTH-SD 59.7 % (39-53); RED BLOOD COUNT 3.22 M/uL (3.80-5.20); WHITE BLOOD COUNT 6.6 K/uL (4.1-10.2)
[2016-03-30 19:58] LABS: CHLORIDE 103 mEq/L (99-109); POTASSIUM 4.2 mEq/L (3.7-5.4); SODIUM 139 mEq/L (136-147)
[2016-03-30 20:00] LABS: GLUCOSE 124 mg/dL (70-99)
[2016-03-30 20:01] LABS: ANION GAP 12 MEQ/L (2-14)
[2016-03-30 20:03] LABS: GFR ESTIMATE (CALCULATED) 27 mL/min/
[2016-03-30 20:04] LABS: UREA NITROGEN (BUN) 31 mg/dL (9-23)
[2016-03-30 20:06] LABS: PROTHROMBIN TIME 69.8 (9.2-11.2)
[2016-03-30 20:10] LABS: TROP-I INTERPRETATION POSITIVE
[2016-03-30 20:14] LABS: INTER. NORMALIZED RATIO 6.5; TROPONIN-I 1.44 ng/mL (0.0-0.30)
[2016-03-30 20:41] LABS: MEAN PLAT.VOLUME 13.7 uM^3 (9.5-12.4); PLAT.SUFFICIENCY DECREASED; PLATELET COUNT 141 K/uL (156-360); USER ID SS
[2016-03-30] MEDS ORDERED: FERROCITE324 MG PO (20:44)
[2016-03-30] MEDS ORDERED: LEVAQUIN500 MG PO (20:45)
[2016-03-30] MEDS ORDERED: LASIX40 MG PO (20:45)
[2016-03-30] MEDS ORDERED: LIDALL 4%-1% P1 EACH TP (20:46)
[2016-03-30] MEDS ORDERED: MULTIPLE VITAM1 EACH PO (20:49)
[2016-03-30] MEDS ORDERED: KLOR-CON M2020 MEQ PO (20:49)
[2016-03-30] MEDS ORDERED: TAMIFLU75 MG PO (20:51)
[2016-03-30] MEDS ORDERED: NYSTOP60 GM TP (20:52)
[2016-03-30] MEDS ORDERED: BENZONATATE100 MG PO (20:53)
[2016-03-30] MEDS ORDERED: DUONEB 2.5-0.5 M3 ML AEROSOL (20:54)
[2016-03-31 00:47] LABS: TROP-I INTERPRETATION POSITIVE
[2016-03-31 00:49] LABS: TROPONIN-I 1.39 ng/mL (0.0-0.30)
[2016-03-31 05:01] LABS: HDL CHOLESTEROL 28 MG/DL (Desirable>=50); LDL CHOLESTEROL 60 mg/dL (Desirable<100); NON-HDL CHOLESTEROL 82 mg/dL (Desirable<160); TOTAL CHOLESTEROL 110 mg/dL (Desirable<200); TRIGLYCERIDES 108 MG/DL (Normal: <150)
[2016-03-31 06:13] LABS: CHLORIDE 102 mEq/L (99-109); POTASSIUM 4.2 mEq/L (3.7-5.4); SODIUM 139 mEq/L (136-147)
[2016-03-31 06:15] LABS: GLUCOSE 104 mg/dL (70-99)
[2016-03-31 06:16] LABS: ANION GAP 12 MEQ/L (2-14)
[2016-03-31 06:17] LABS: TOTAL BILIRUBIN 1.3 mg/dL (0.0-1.0)
[2016-03-31 06:18] LABS: ALKALINE PHOSPHATASE 104 IU/L (3-129)
[2016-03-31 06:19] LABS: GFR ESTIMATE (CALCULATED) 29 mL/min/
[2016-03-31 06:20] LABS: UREA NITROGEN (BUN) 31 mg/dL (9-23)
[2016-03-31 06:21] LABS: TROP-I INTERPRETATION POSITIVE; TROPONIN-I 1.25 ng/mL (0.0-0.30)
[2016-03-31 06:59] LABS: HEMATOCRIT 34.2 % (36.0-46.0); MCH 32.5 PG (29.0-34.0); MCHC 32.2 G/DL (30.0-36.0); MCV 101.2 FL (83-99); MEAN PLAT.VOLUME 13.9 uM^3 (9.5-12.4); RBC DIS.WIDTH-CV 17.1 % (11.8-14.6); RBC DIS.WIDTH-SD 59.1 % (39-53); RED BLOOD COUNT 3.38 M/uL (3.80-5.20); WHITE BLOOD COUNT 7.1 K/uL (4.1-10.2)
[2016-03-31 07:00] LABS: PLATELET COUNT ND K/uL (156-360)
[2016-03-31 07:43] LABS: Estimated Average Glucose 120 mg/dL (70-123); HEMOGLOBIN A1c (GLYCOHEMOGLOB) 5.8 % HGB (Below 5.7)
[2016-03-31 11:13] LABS: INTER. NORMALIZED RATIO 2.9; PROTHROMBIN TIME 30.9 (9.2-11.2)
[2016-03-31 13:40] VITALS: BP 123/64
[2016-03-31 15:30] VITALS: BP 95/57
[2016-03-31 20:50] VITALS: BP 108/74
[2016-04-01] VITALS (7 sets, daily range): BP systolic 103–142; BP diastolic 59–78
[2016-04-01 06:46] LABS: INTER. NORMALIZED RATIO 1.7; PTT 34.4 (25-32)
[2016-04-01 06:47] LABS: PROTHROMBIN TIME 17.1 (9.2-11.2)
[2016-04-01 07:10] LABS: EOSINOPHIL (%) 4.6 % (0-5); EOSINOPHIL COUNT 0.3 K/uL (0-0.3); HEMATOCRIT 33.1 % (36.0-46.0); IMMATURE GRANULOCYTE (%) 0.2 % (0.0-0.7); LYMPHOCYTE COUNT 1.3 K/uL (1.0-2.8); MCH 31.7 PG (29.0-34.0); MCHC 31.1 G/DL (30.0-36.0); MCV 101.8 FL (83-99); MONOCYTE (%) 15.1 % (3-12); NEUTROPHIL (%) 59.2 % (45-76); NEUTROPHIL COUNT 3.8 K/uL (1.8-6.4); RBC DIS.WIDTH-CV 17.6 % (11.8-14.6); RBC DIS.WIDTH-SD 64.1 % (39-53); RED BLOOD COUNT 3.25 M/uL (3.80-5.20); WHITE BLOOD COUNT 6.4 K/uL (4.1-10.2)
[2016-04-01 07:21] LABS: ANION GAP 11 MEQ/L (2-14); CHLORIDE 101 MEQ/L (99-109); GFR ESTIMATE (CALCULATED) 38 mL/min/; GLUCOSE 105 mg/dL (70-99); POTASSIUM 3.7 MEQ/L (3.7-5.4); SAMPLE HEMOLYSIS CHECK 0; SAMPLE ICTERIC CHECK 0; SAMPLE LIPEMIA CHECK 0; SODIUM 141 MEQ/L (136-147); UREA NITROGEN (BUN) 27 mg/dL (9-23)
[2016-04-01 07:30] LABS: MEAN PLAT.VOLUME 13.7 uM^3 (9.5-12.4); PLAT.SUFFICIENCY DECREASED; PLATELET COUNT 140 K/uL (156-360); USER ID STC
[2016-04-01 08:09] LABS: POINT-OF-CARE METER ID UU14174216; POINT-OF-CARE USER ID NUTSLF44
[2016-04-02 03:25] VITALS: BP 118/57
[2016-04-02 07:03] LABS: ANION GAP 8 MEQ/L (2-14); CHLORIDE 101 MEQ/L (99-109); GFR ESTIMATE (CALCULATED) 42 mL/min/; GLUCOSE 92 mg/dL (70-99); POTASSIUM 3.4 MEQ/L (3.7-5.4); SAMPLE HEMOLYSIS CHECK 0; SAMPLE ICTERIC CHECK 0; SAMPLE LIPEMIA CHECK 0; SODIUM 142 MEQ/L (136-147); UREA NITROGEN (BUN) 25 mg/dL (9-23)
[2016-04-02 07:45] VITALS: BP 121/76
[2016-04-02 07:49] LABS: BASOPHIL COUNT 0.1 K/uL (0-0.1); EOSINOPHIL (%) 8.1 % (0-5); EOSINOPHIL COUNT 0.6 K/uL (0-0.3); HEMATOCRIT 32.2 % (36.0-46.0); HEMATOLOGY COMMENT 1 SMEAR COMPATIBLE; IMMATURE GRANULOCYTE (%) 0.4 % (0.0-0.7); LYMPHOCYTE COUNT 1.6 K/uL (1.0-2.8); MCH 32.5 PG (29.0-34.0); MCHC 32.3 G/DL (30.0-36.0); MCV 100.6 FL (83-99); MEAN PLAT.VOLUME 14.3 uM^3 (9.5-12.4); MONOCYTE COUNT 1.2 K/uL (0-0.8); NEUTROPHIL (%) 50.7 % (45-76); NEUTROPHIL COUNT 3.5 K/uL (1.8-6.4); PLAT.SUFFICIENCY ADEQUATE; PLATELET COUNT 135 K/uL (156-360); RBC DIS.WIDTH-CV 17.5 % (11.8-14.6); RBC DIS.WIDTH-SD 62.9 % (39-53); WHITE BLOOD COUNT 6.9 K/uL (4.1-10.2)
[2016-04-02 11:30] VITALS: BP 95/50
[2016-04-02 15:29] VITALS: BP 111/57
[2016-04-02 15:30] LABS: INTER. NORMALIZED RATIO 1.5; PROTHROMBIN TIME 15.4 (9.2-11.2)
[2016-04-02 18:40] VITALS: BP 121/57
[2016-04-02 23:17] VITALS: BP 118/64
[2016-04-03 03:47] VITALS: BP 127/58
[2016-04-03 06:52] LABS: INTER. NORMALIZED RATIO 1.5; PROTHROMBIN TIME 15.6 (9.2-11.2)
[2016-04-03 07:08] LABS: ANION GAP 9 MEQ/L (2-14); CHLORIDE 101 MEQ/L (99-109); GFR ESTIMATE (CALCULATED) 46 mL/min/; GLUCOSE 100 mg/dL (70-99); POTASSIUM 3.4 MEQ/L (3.7-5.4); SAMPLE HEMOLYSIS CHECK 0; SAMPLE ICTERIC CHECK 0; SAMPLE LIPEMIA CHECK 0; SODIUM 141 MEQ/L (136-147); UREA NITROGEN (BUN) 23 mg/dL (9-23)
[2016-04-03 07:24] LABS: HEMATOCRIT 32.3 % (36.0-46.0); MCH 31.3 PG (29.0-34.0); MCV 101.3 FL (83-99); RBC DIS.WIDTH-CV 18.1 % (11.8-14.6); RBC DIS.WIDTH-SD 64.9 % (39-53); RED BLOOD COUNT 3.19 M/uL (3.80-5.20); WHITE BLOOD COUNT 6.5 K/uL (4.1-10.2)
[2016-04-03 08:02] LABS: MEAN PLAT.VOLUME 12.9 uM^3 (9.5-12.4); PLATELET COUNT 154 K/uL (156-360)
[2016-04-03 08:04] VITALS: BP 111/53
[2016-04-03 12:00] VITALS: BP 117/54
[2016-04-03 15:50] VITALS: BP 105/54
[2016-04-03 19:54] VITALS: BP 118/58
[2016-04-03 22:35] VITALS: BP 111/57
[2016-04-04 03:01] VITALS: BP 135/63
[2016-04-04 06:18] LABS: HEMATOCRIT 34.4 % (36.0-46.0); MCH 31.7 PG (29.0-34.0); MCHC 30.8 G/DL (30.0-36.0); PLATELET COUNT 150 K/uL (156-360); RBC DIS.WIDTH-CV 18.3 % (11.8-14.6); RBC DIS.WIDTH-SD 67.6 % (39-53); RED BLOOD COUNT 3.34 M/uL (3.80-5.20); WHITE BLOOD COUNT 6.3 K/uL (4.1-10.2)
[2016-04-04 06:40] LABS: INTER. NORMALIZED RATIO 1.7; PROTHROMBIN TIME 17.1 (9.2-11.2)
[2016-04-04 06:41] LABS: ANION GAP 9 MEQ/L (2-14); CHLORIDE 100 MEQ/L (99-109); GFR ESTIMATE (CALCULATED) 46 mL/min/; GLUCOSE 106 mg/dL (70-99); POTASSIUM 3.4 MEQ/L (3.7-5.4); SAMPLE HEMOLYSIS CHECK 0; SAMPLE ICTERIC CHECK 0; SAMPLE LIPEMIA CHECK 0; SODIUM 140 MEQ/L (136-147); UREA NITROGEN (BUN) 21 mg/dL (9-23)
[2016-04-04 08:14] VITALS: BP 145/67
[2016-04-04 11:21] VITALS: BP 133/52
[2016-04-04 15:47] VITALS: BP 131/60
[2016-04-04 19:19] VITALS: BP 118/58
[2016-04-04 23:29] VITALS: BP 126/69
[2016-04-05 04:57] VITALS: BP 142/71
[2016-04-05 06:59] LABS: PROTHROMBIN TIME 20.5 (9.2-11.2)
[2016-04-05 07:05] VITALS: BP 158/68
[2016-04-05 07:14] LABS: HEMATOCRIT 32.7 % (36.0-46.0); MCHC 32.1 G/DL (30.0-36.0); MCV 102.8 FL (83-99); RBC DIS.WIDTH-CV 18.5 % (11.8-14.6); RBC DIS.WIDTH-SD 67.8 % (39-53); RED BLOOD COUNT 3.18 M/uL (3.80-5.20)
[2016-04-05 07:19] LABS: ANION GAP 10 MEQ/L (2-14); CHLORIDE 101 MEQ/L (99-109); GFR ESTIMATE (CALCULATED) 56 mL/min/; GLUCOSE 97 mg/dL (70-99); SAMPLE HEMOLYSIS CHECK 1; SAMPLE ICTERIC CHECK 0; SAMPLE LIPEMIA CHECK 0; SODIUM 142 MEQ/L (136-147); UREA NITROGEN (BUN) 17 mg/dL (9-23)
[2016-04-05 07:29] LABS: MEAN PLAT.VOLUME 13.5 uM^3 (9.5-12.4); PLATELET COUNT 148 K/uL (156-360)
[2016-04-05 11:40] VITALS: BP 125/60
[2016-04-05 16:05] VITALS: BP 115/57
[2016-04-05 18:25] LABS: CREATINE KINASE 56 IU/L (1-294); TOTAL CK 56 IU/L (1-294)
[2016-04-05 18:49] LABS: CK-MB 2.1 ng/mL (0.0-4.9)
[2016-04-05 20:10] VITALS: BP 125/65
[2016-04-06 00:15] VITALS: BP 114/62
[2016-04-06 03:40] VITALS: BP 135/69
[2016-04-06 06:54] LABS: INTER. NORMALIZED RATIO 2.1; PROTHROMBIN TIME 22.1 (9.2-11.2)
[2016-04-06 07:02] LABS: ANION GAP 9 MEQ/L (2-14); CHLORIDE 100 MEQ/L (99-109); GFR ESTIMATE (CALCULATED) 51 mL/min/; GLUCOSE 98 mg/dL (70-99); POTASSIUM 3.9 MEQ/L (3.7-5.4); SAMPLE HEMOLYSIS CHECK 0; SAMPLE ICTERIC CHECK 0; SAMPLE LIPEMIA CHECK 0; SODIUM 143 MEQ/L (136-147); UREA NITROGEN (BUN) 15 mg/dL (9-23)
[2016-04-06 07:08] VITALS: BP 136/60
[2016-04-06 07:21] LABS: EOSINOPHIL (%) 6.7 % (0-5); EOSINOPHIL COUNT 0.4 K/uL (0-0.3); HEMATOCRIT 36.3 % (36.0-46.0); IMMATURE GRANULOCYTE (%) 0.2 % (0.0-0.7); LYMPHOCYTE COUNT 1.7 K/uL (1.0-2.8); MCH 31.5 PG (29.0-34.0); MCHC 30.9 G/DL (30.0-36.0); MEAN PLAT.VOLUME 13.7 uM^3 (9.5-12.4); MONOCYTE (%) 12.6 % (3-12); MONOCYTE COUNT 0.8 K/uL (0-0.8); NEUTROPHIL (%) 53.7 % (45-76); NEUTROPHIL COUNT 3.5 K/uL (1.8-6.4); PLAT.SUFFICIENCY ADEQUATE; PLATELET COUNT 150 K/uL (156-360); RBC DIS.WIDTH-CV 18.8 % (11.8-14.6); RBC DIS.WIDTH-SD 67.7 % (39-53); RED BLOOD COUNT 3.56 M/uL (3.80-5.20); USER ID CL; WHITE BLOOD COUNT 6.4 K/uL (4.1-10.2)
[2016-04-06 12:00] VITALS: BP 135/65
[2016-04-06 14:42] VITALS: BP 124/85
[2016-04-06 19:48] VITALS: BP 134/72
[2016-04-07] VITALS: BP 133/86
[2016-04-07 04:00] VITALS: BP 101/60
[2016-04-07 06:49] LABS: INTER. NORMALIZED RATIO 2.3; PROTHROMBIN TIME 23.7 (9.2-11.2)
[2016-04-07 07:02] LABS: ANION GAP 8 MEQ/L (2-14); CHLORIDE 99 MEQ/L (99-109); GFR ESTIMATE (CALCULATED) 56 mL/min/; GLUCOSE 96 mg/dL (70-99); SAMPLE HEMOLYSIS CHECK 0; SAMPLE ICTERIC CHECK 0; SAMPLE LIPEMIA CHECK 0; SODIUM 142 MEQ/L (136-147); UREA NITROGEN (BUN) 14 mg/dL (9-23)
[2016-04-07 07:16] VITALS: BP 117/62
[2016-04-07 07:39] LABS: EOSINOPHIL (%) 8.1 % (0-5); EOSINOPHIL COUNT 0.4 K/uL (0-0.3); HEMATOCRIT 32.7 % (36.0-46.0); IMMATURE GRANULOCYTE (%) 0.4 % (0.0-0.7); LYMPHOCYTE COUNT 1.6 K/uL (1.0-2.8); MCH 32.6 PG (29.0-34.0); MCHC 32.1 G/DL (30.0-36.0); MCV 101.6 FL (83-99); MEAN PLAT.VOLUME 13.4 uM^3 (9.5-12.4); MONOCYTE (%) 13.5 % (3-12); MONOCYTE COUNT 0.7 K/uL (0-0.8); NEUTROPHIL (%) 47.8 % (45-76); NEUTROPHIL COUNT 2.6 K/uL (1.8-6.4); PLAT.SUFFICIENCY DECREASED; PLATELET COUNT 137 K/uL (156-360); RBC DIS.WIDTH-CV 18.4 % (11.8-14.6); RBC DIS.WIDTH-SD 68.2 % (39-53); RED BLOOD COUNT 3.22 M/uL (3.80-5.20); WHITE BLOOD COUNT 5.4 K/uL (4.1-10.2)
[2016-04-07 10:58] VITALS: BP 101/56
[2016-04-07 14:52] VITALS: BP 106/63
[2016-04-07 19:53] VITALS: BP 110/64
[2016-04-08] VITALS: BP 137/61
[2016-04-08 04:00] VITALS: BP 152/68
[2016-04-08 07:01] LABS: INTER. NORMALIZED RATIO 2.5; PROTHROMBIN TIME 26.2 (9.2-11.2)
[2016-04-08 07:05] LABS: ANION GAP 10 MEQ/L (2-14); CHLORIDE 98 MEQ/L (99-109); GFR ESTIMATE (CALCULATED) 51 mL/min/; GLUCOSE 99 mg/dL (70-99); POTASSIUM 3.8 MEQ/L (3.7-5.4); SAMPLE HEMOLYSIS CHECK 0; SAMPLE ICTERIC CHECK 0; SAMPLE LIPEMIA CHECK 0; SODIUM 143 MEQ/L (136-147); UREA NITROGEN (BUN) 14 mg/dL (9-23)
[2016-04-08 07:52] VITALS: BP 132/60
[2016-04-08] MEDS ORDERED: PRAVASTATIN SOD80 MG PO (11:37)
[2016-04-08] MEDS ORDERED: LOPRESSOR25 MG PO (11:37)
[2016-04-08] MEDS ORDERED: BUMETANIDE1 MG PO (11:37)
[2016-04-08] MEDS ORDERED: ASPIR-LOW81 MG PO (11:37)
== END 2016-04-08 15:00 | DRG 280 ==
LOC: EME → EDBD 18:58 → EME 18:58 → EDOF 22:33 → 4EAST 22:33 → 5SOUTH 22:33 → 4EAST 03-31 13:23 → 5SOUTH 04-06 14:16
PROVIDERS: Emergency Medicine; Hospitalist; Internal Medicine; Internal Medicine Cardiovascular Disease; Nurse Practitioner Family
DX: I50.33 Acute on chronic diastolic (congestive) heart failure (principal); J18.9 Pneumonia, unspecified organism; I21.4 Non-ST elevation (NSTEMI) myocardial infarction; N17.9 Acute kidney failure, unspecified; J90 Pleural effusion, not elsewhere classified; D68.9 Coagulation defect, unspecified; L03.116 Cellulitis of left lower limb; R18.8 Other ascites; I12.9 Hypertensive chronic kidney disease with stage 1 through stage 4 chronic kidney disease, or unspecified chronic kidney disease; I49.5 Sick sinus syndrome; I27.2 Other secondary pulmonary hypertension; N18.3 Chronic kidney disease, stage 3 (moderate); I48.2 Chronic atrial fibrillation; D64.9 Anemia, unspecified; I25.10 Atherosclerotic heart disease of native coronary artery without angina pectoris; I35.0 Nonrheumatic aortic (valve) stenosis; I89.0 Lymphedema, not elsewhere classified; Z95.0 Presence of cardiac pacemaker; E78.5 Hyperlipidemia, unspecified; Z85.3 Personal history of malignant neoplasm of breast; Z96.643 Presence of artificial hip joint, bilateral; E66.9 Obesity, unspecified; Z79.01 Long term (current) use of anticoagulants; Z96.652 Presence of left artificial knee joint; Z96.641 Presence of right artificial hip joint; E87.6 Hypokalemia; Z68.30 Body mass index [BMI] 30.0-30.9, adult
CPT/HCPCS: 70450; 71010; 71250; 73200; 80048; 80048 91; 80053; 80061; 82550; 82553; 82948; 83036; 84484; 85025; 85027; 85610; 85730; 92523 GN; 92610 GN; 93005; 93971; 94640; 94640 76; 94760; 94799; 97530 GO; 97530 GP; 99202; 99281; 99285; J1160; J1940

== ENCOUNTER 2016-05-10 12:21 | Day surgery (SDC) | payer OTHER ==
[~2016-05-10] VITALS: Ht 167.6 cm; Wt 74.0 kg
[~2016-05-10 12:21] MED LIST changes: +ASPIR-LOW81 MG PO; +BUMETANIDE1 MG PO; +BUMEX2 MG PO; +DUONEB 2.5-0.5 M3 ML AEROSOL; +FERROCITE324 MG PO; +IRON325 MG PO; +KLOR-CON M2020 MEQ PO; +LASIX40 MG PO; +LEVAQUIN500 MG PO; +LIDALL 4%-1% P1 EACH TP; +LOPRESSOR25 MG PO; +MAG-OXIDE400 MG PO; +MULTIPLE VITAM1 EACH PO; +NYSTOP60 GM TP; +PRAVASTATIN SOD80 MG PO; +TAMIFLU75 MG PO
[2016-05-10] MEDS ORDERED: PRAVASTATIN SOD80 MG PO (12:47)
[2016-05-11] MEDS ORDERED: ZYLOPRIM100 MG PO (17:35)
[2016-05-11] MEDS ORDERED: KEFLEX500 MG PO (17:39)
== END 2016-05-10 15:38 | disposition home or self-care (01) ==
LOC: CATH 12:21
DX: Z45.010 Encounter for checking and testing of cardiac pacemaker pulse generator [battery] (principal); I49.5 Sick sinus syndrome; I48.1 Persistent atrial fibrillation; I10 Essential (primary) hypertension; E78.5 Hyperlipidemia, unspecified; Z79.82 Long term (current) use of aspirin; I35.0 Nonrheumatic aortic (valve) stenosis; I42.0 Dilated cardiomyopathy
CPT/HCPCS: C1785; J0690; J1200; J2250; J3010; S0020

== ENCOUNTER 2016-05-11 13:17 | Inpatient (IN) | payer OTHER ==
[~2016-05-11] VITALS: Ht 167.6 cm; Wt 78.6 kg
[2016-05-11 14:34] LABS: HEMATOCRIT 35.4 % (36.0-46.0); MCH 33.8 PG (29.0-34.0); MCHC 32.2 G/DL (30.0-36.0); MEAN PLAT.VOLUME 13.3 uM^3 (9.5-12.4); PLATELET COUNT 125 K/uL (156-360); RBC DIS.WIDTH-CV 19.5 % (11.8-14.6); RBC DIS.WIDTH-SD 76.5 % (39-53); RED BLOOD COUNT 3.37 M/uL (3.80-5.20)
[2016-05-11 14:44] LABS: WHITE BLOOD COUNT 9.8 K/uL (4.1-10.2)
[2016-05-11 14:51] LABS: CHLORIDE 101 mEq/L (99-109); POTASSIUM 3.6 mEq/L (3.7-5.4); SODIUM 140 mEq/L (136-147)
[2016-05-11 14:52] LABS: GLUCOSE 141 mg/dL (70-99)
[2016-05-11 14:54] LABS: ANION GAP 12 MEQ/L (2-14)
[2016-05-11 14:56] LABS: GFR ESTIMATE (CALCULATED) 42 mL/min/
[2016-05-11 14:57] LABS: UREA NITROGEN (BUN) 19 mg/dL (9-23)
[2016-05-11 15:05] LABS: TROP-I INTERPRETATION NEGATIVE; TROPONIN-I 0.13 ng/mL (0.0-0.30)
[2016-05-11] MEDS ORDERED: ZYLOPRIM100 MG PO (17:35)
[2016-05-11] MEDS ORDERED: KEFLEX500 MG PO (17:39)
[2016-05-11 21:36] LABS: INTER. NORMALIZED RATIO 1.5; PTT 31.3 (25-32)
[2016-05-11 22:05] LABS: BASE EXCESS 3.5 mEq/L (-3 to +3); BICARBONATE 25.9 mEq/L (22-26); CARBOXY HGB 2.9 % (0-5); COMMENTS - BLOOD GASES C+; DEVICE NC; METHEMOGLOBIN 1.1 % (0-1.5); O2 FLOW 2 L/MIN; PCO2 31 mm Hg (35-45); PO2 74 mm Hg (80-100); SITE LR; pH 7.53 (7.35-7.45)
[2016-05-11 22:51] VITALS: BP 132/66
[2016-05-12] VITALS (7 sets, daily range): BP systolic 80–126; BP diastolic 47–59
[2016-05-12 06:00] LABS: EOSINOPHIL (%) 2.8 % (0-5); EOSINOPHIL COUNT 0.2 K/uL (0-0.3); HEMATOCRIT 32.3 % (36.0-46.0); IMMATURE GRANULOCYTE (%) 0.4 % (0.0-0.7); INSTRUMENT ABS NEUTROPHIL CT 6.5 K/uL; LYMPHOCYTE COUNT 0.9 K/uL (1.0-2.8); MCH 33.4 PG (29.0-34.0); MCHC 31.6 G/DL (30.0-36.0); MCV 105.9 FL (83-99); MEAN PLAT.VOLUME 14.3 uM^3 (9.5-12.4); MONOCYTE (%) 7.2 % (3-12); MONOCYTE COUNT 0.6 K/uL (0-0.8); NEUTROPHIL (%) 77.8 % (45-76); NEUTROPHIL COUNT 6.5 K/uL (1.8-6.4); PLATELET COUNT 99 K/uL (156-360); RBC DIS.WIDTH-CV 19.3 % (11.8-14.6); RBC DIS.WIDTH-SD 75.3 % (39-53); RED BLOOD COUNT 3.05 M/uL (3.80-5.20); WHITE BLOOD COUNT 8.4 K/uL (4.1-10.2)
[2016-05-12 06:23] LABS: PTT 112.2 (25-32); TROP-I INTERPRETATION NEGATIVE; TROPONIN-I 0.11 ng/mL (0.0-0.30)
[2016-05-12 06:34] LABS: INTER. NORMALIZED RATIO 1.6; PROTHROMBIN TIME 16.4 (9.2-11.2)
[2016-05-12 07:15] LABS: ANION GAP 11 MEQ/L (2-14); CHLORIDE 101 MEQ/L (99-109); GFR ESTIMATE (CALCULATED) 38 mL/min/; GLUCOSE 112 mg/dL (70-99); POTASSIUM 4.2 MEQ/L (3.7-5.4); SAMPLE HEMOLYSIS CHECK 0; SAMPLE ICTERIC CHECK 0; SAMPLE LIPEMIA CHECK 0; SODIUM 140 MEQ/L (136-147); UREA NITROGEN (BUN) 23 mg/dL (9-23)
[2016-05-13 03:36] VITALS: BP 111/54
[2016-05-13 08:30] VITALS: BP 113/61
[2016-05-13 09:29] LABS: HEMATOCRIT 31.7 % (36.0-46.0); MCH 33.3 PG (29.0-34.0); MCHC 31.5 G/DL (30.0-36.0); MCV 105.7 FL (83-99); PLATELET COUNT 84 K/uL (156-360); RBC DIS.WIDTH-CV 19.2 % (11.8-14.6); RBC DIS.WIDTH-SD 76.1 % (39-53); WHITE BLOOD COUNT 8.2 K/uL (4.1-10.2)
[2016-05-13 09:46] LABS: ANION GAP 13 MEQ/L (2-14); CHLORIDE 101 MEQ/L (99-109); GFR ESTIMATE (CALCULATED) 35 mL/min/; GLUCOSE 90 mg/dL (70-99); POTASSIUM 4.1 MEQ/L (3.7-5.4); SAMPLE HEMOLYSIS CHECK 0; SAMPLE ICTERIC CHECK 0; SAMPLE LIPEMIA CHECK 0; SODIUM 139 MEQ/L (136-147); UREA NITROGEN (BUN) 34 mg/dL (9-23)
[2016-05-13 09:59] LABS: INTER. NORMALIZED RATIO 1.6; PROTHROMBIN TIME 16.3 (9.2-11.2)
[2016-05-13 10:13] LABS: PTT 56.7 (25-32)
[2016-05-13 11:45] VITALS: BP 86/51
[2016-05-13 12:45] VITALS: BP 88/54
[2016-05-13 15:30] VITALS: BP 98/52
[2016-05-13 20:10] VITALS: BP 97/59
[2016-05-14 00:31] VITALS: BP 125/67
[2016-05-14 03:22] VITALS: BP 110/58
[2016-05-14 06:41] LABS: INTER. NORMALIZED RATIO 1.6; PROTHROMBIN TIME 16.3 (9.2-11.2)
[2016-05-14 08:58] VITALS: BP 121/80
[2016-05-14 13:37] LABS: PTT 54.3 (25-32)
[2016-05-14 16:33] VITALS: BP 116/59
[2016-05-14 19:20] VITALS: BP 108/63
[2016-05-15 01:00] VITALS: BP 106/68
[2016-05-15 03:55] VITALS: BP 123/59
[2016-05-15 06:40] LABS: ANION GAP 10 MEQ/L (2-14); CHLORIDE 103 MEQ/L (99-109); GFR ESTIMATE (CALCULATED) 31 mL/min/; GLUCOSE 102 mg/dL (70-99); POTASSIUM 4.1 MEQ/L (3.7-5.4); SAMPLE HEMOLYSIS CHECK 0; SAMPLE ICTERIC CHECK 0; SAMPLE LIPEMIA CHECK 0; SODIUM 138 MEQ/L (136-147); UREA NITROGEN (BUN) 39 mg/dL (9-23)
[2016-05-15 07:23] LABS: MCH 33.5 PG (29.0-34.0); MCHC 32.5 G/DL (30.0-36.0); MCV 102.9 FL (83-99); RBC DIS.WIDTH-CV 18.7 % (11.8-14.6); RBC DIS.WIDTH-SD 70.5 % (39-53); RED BLOOD COUNT 2.72 M/uL (3.80-5.20); WHITE BLOOD COUNT 5.9 K/uL (4.1-10.2)
[2016-05-15 07:23] LABS: INTER. NORMALIZED RATIO 1.7; PROTHROMBIN TIME 17.9 (9.2-11.2); PTT 51.8 (25-32)
[2016-05-15 07:55] LABS: BASOPHIL COUNT 0.1 K/uL (0-0.1); EOSINOPHIL (%) 9.7 % (0-5); EOSINOPHIL COUNT 0.6 K/uL (0-0.3); IMMATURE GRANULOCYTE (%) 0.2 % (0.0-0.7); INSTRUMENT ABS NEUTROPHIL CT 2.8 K/uL; LYMPHOCYTE COUNT 1.7 K/uL (1.0-2.8); MONOCYTE (%) 12.6 % (3-12); MONOCYTE COUNT 0.7 K/uL (0-0.8); NEUTROPHIL (%) 47.8 % (45-76); NEUTROPHIL COUNT 2.8 K/uL (1.8-6.4); PLAT.SUFFICIENCY DECREASED; PLATELET COUNT 85 K/uL (156-360)
[2016-05-15 08:56] VITALS: BP 134/68
[2016-05-15 11:53] VITALS: BP 123/60
[2016-05-15 16:30] VITALS: BP 105/54
[2016-05-15 19:29] VITALS: BP 115/56
[2016-05-16 00:41] VITALS: BP 97/59
[2016-05-16 03:30] VITALS: BP 113/67
== END 2016-05-16 05:50 | disposition short-term general hospital (02) | DRG 291 ==
LOC: EME 13:17 → 4EAST 20:13 → EDOF 20:13 → 4EAST 22:27
PROVIDERS: Emergency Medicine; Hospitalist; Physician Assistant; Physician Assistant Medical; Student in an Organized Health Care Education/Training Program
DX: I50.33 Acute on chronic diastolic (congestive) heart failure (principal); J18.1 Lobar pneumonia, unspecified organism; J96.01 Acute respiratory failure with hypoxia; D61.818 Other pancytopenia; E87.2 Acidosis; I42.0 Dilated cardiomyopathy; N18.3 Chronic kidney disease, stage 3 (moderate); I95.9 Hypotension, unspecified; I12.9 Hypertensive chronic kidney disease with stage 1 through stage 4 chronic kidney disease, or unspecified chronic kidney disease; I25.10 Atherosclerotic heart disease of native coronary artery without angina pectoris; E78.5 Hyperlipidemia, unspecified; I48.2 Chronic atrial fibrillation; K21.9 Gastro-esophageal reflux disease without esophagitis; R07.81 Pleurodynia; I35.0 Nonrheumatic aortic (valve) stenosis; D69.6 Thrombocytopenia, unspecified; T45.515A Adverse effect of anticoagulants, initial encounter; M10.9 Gout, unspecified; M81.0 Age-related osteoporosis without current pathological fracture; Z85.3 Personal history of malignant neoplasm of breast; Z95.0 Presence of cardiac pacemaker
CPT/HCPCS: 36600; 71020; 78582; 80048; 80048 91; 82803; 83605; 83735; 83880; 84484; 85025; 85027; 85610; 85730; 87040; 93005; 94640; 94640 76; 94799; 99281; 99285; A9540; A9567; C1785; J0456; J0690; J0692; J1160; J1200; J2250; J3010; J7040; J7050; S0020

== ENCOUNTER 2016-06-02 14:45 | Inpatient (IN) | payer OTHER ==
[2016-06-02] VITALS (7 sets, daily range): BP systolic 122–139; BP diastolic 56–77
[~2016-06-02] VITALS: Ht 167.6 cm; Wt 71.0 kg
[~2016-06-02 14:45] MED LIST changes: +KEFLEX500 MG PO; +ZYLOPRIM100 MG PO
[2016-06-02 17:11] LABS: HEMATOCRIT 25.9 % (36.0-46.0); MCH 34.2 PG (29.0-34.0); MCHC 31.7 G/DL (30.0-36.0); MCV 107.9 FL (83-99); MEAN PLAT.VOLUME 13.7 uM^3 (9.5-12.4); PLATELET COUNT 152 K/uL (156-360); RBC DIS.WIDTH-CV 18.7 % (11.8-14.6); RBC DIS.WIDTH-SD 75.4 % (39-53); WHITE BLOOD COUNT 5.5 K/uL (4.1-10.2)
[2016-06-02 17:14] LABS: CHLORIDE 102 mEq/L (99-109); INTER. NORMALIZED RATIO 2.7; POTASSIUM 3.6 mEq/L (3.7-5.4); SODIUM 142 mEq/L (136-147)
[2016-06-02 17:15] LABS: GLUCOSE 104 mg/dL (70-99)
[2016-06-02 17:17] LABS: ANION GAP 15 MEQ/L (2-14); PROTHROMBIN TIME 28.2 (9.2-11.2)
[2016-06-02 17:19] LABS: ADD MIUA? YES; BILIRUBIN NEGATIVE; BLOOD NEGATIVE; COLOR YELLOW ((YELLOW)); GLUCOSE (STRIP) NEGATIVE; KETONES NEGATIVE; LEUKOCYTES LARGE; NITRITE NEGATIVE; PROTEIN (STRIP) 30; SPECIFIC GRAVITY 1.012 (1.000-1.030); UROBILINOGEN 0.2 MG/DL (0.2-1.0)
[2016-06-02 17:19] LABS: GFR ESTIMATE (CALCULATED) 38 mL/min/
[2016-06-02 17:20] LABS: UREA NITROGEN (BUN) 26 mg/dL (9-23)
[2016-06-02 17:23] LABS: TROP-I INTERPRETATION NEGATIVE; TROPONIN-I 0.06 ng/mL (0.0-0.30)
[2016-06-02 17:29] LABS: BACTERIA RARE /HPF; EPITHELIAL CELLS 1+ /HPF; HYALINE CASTS 15-20 /LPF; MUCUS TRACE /LPF; RED BLOOD CELLS 0-5 /HPF (0-5); UCUL ADDED? NO; WHITE BLOOD CELLS 0-5 /HPF (0-5)
[2016-06-02] MEDS ORDERED: LO-DOSE ASPIRIN81 M1 PO (18:22)
[2016-06-02] MEDS ORDERED: LASIX40 MG PO (18:23)
[2016-06-02] MEDS ORDERED: FERROUS SULFAT325 MG PO (18:23)
[2016-06-02] MEDS ORDERED: PRILOSEC10 MG PO (18:24)
[2016-06-02] MEDS ORDERED: IPRATROPIUM BRO30 ML BOTH NARES (18:26)
[2016-06-02] MEDS ORDERED: TUMS500 MG PO (18:27)
[2016-06-02] MEDS ORDERED: MELATONIN1 MG PO (18:28)
[2016-06-03 03:50] VITALS: BP 139/61
[2016-06-03 07:11] LABS: INTER. NORMALIZED RATIO 2.3; PROTHROMBIN TIME 24.3 (9.2-11.2)
[2016-06-03 07:19] LABS: ALKALINE PHOSPHATASE 63 IU/L (3-129); ANION GAP 13 MEQ/L (2-14); CHLORIDE 102 MEQ/L (99-109); GFR ESTIMATE (CALCULATED) 42 mL/min/; GLUCOSE 94 mg/dL (70-99); POTASSIUM 3.8 MEQ/L (3.7-5.4); SAMPLE HEMOLYSIS CHECK 0; SAMPLE ICTERIC CHECK 0; SAMPLE LIPEMIA CHECK 0; SODIUM 141 MEQ/L (136-147); UREA NITROGEN (BUN) 23 mg/dL (9-23)
[2016-06-03 07:30] VITALS: BP 123/74
[2016-06-03 08:09] LABS: HEMATOCRIT 28.2 % (36.0-46.0); MCH 33.7 PG (29.0-34.0); MCHC 31.9 G/DL (30.0-36.0); MCV 105.6 FL (83-99); MEAN PLAT.VOLUME 14.4 uM^3 (9.5-12.4); PLATELET COUNT 132 K/uL (156-360); RBC DIS.WIDTH-CV 20.8 % (11.8-14.6); RBC DIS.WIDTH-SD 81.2 % (39-53); RED BLOOD COUNT 2.67 M/uL (3.80-5.20); WHITE BLOOD COUNT 5.3 K/uL (4.1-10.2)
[2016-06-03 10:37] VITALS: BP 110/55
[2016-06-03 12:41] LABS: MCV 105.6 FL (83-99)
[2016-06-03 16:02] VITALS: BP 135/55
[2016-06-03 18:05] LABS: MCV 106.8 FL (83-99)
[2016-06-03 19:55] VITALS: BP 141/57
[2016-06-04] VITALS: BP 132/79
[2016-06-04 04:00] VITALS: BP 151/83
[2016-06-04 06:20] LABS: HEMATOCRIT 28.6 % (36.0-46.0); MCH 33.9 PG (29.0-34.0); MCHC 32.2 G/DL (30.0-36.0); MCV 105.5 FL (83-99); MEAN PLAT.VOLUME 13.9 uM^3 (9.5-12.4); PLATELET COUNT 127 K/uL (156-360); RBC DIS.WIDTH-CV 20.3 % (11.8-14.6); RBC DIS.WIDTH-SD 78.7 % (39-53); RED BLOOD COUNT 2.71 M/uL (3.80-5.20); WHITE BLOOD COUNT 4.9 K/uL (4.1-10.2)
[2016-06-04 06:42] LABS: ANION GAP 12 MEQ/L (2-14); CHLORIDE 103 MEQ/L (99-109); GFR ESTIMATE (CALCULATED) 42 mL/min/; GLUCOSE 93 mg/dL (70-99); POTASSIUM 3.8 MEQ/L (3.7-5.4); SAMPLE HEMOLYSIS CHECK 0; SAMPLE ICTERIC CHECK 0; SAMPLE LIPEMIA CHECK 0; SODIUM 142 MEQ/L (136-147); UREA NITROGEN (BUN) 21 mg/dL (9-23)
[2016-06-04 09:08] VITALS: BP 121/64
[2016-06-04 10:26] LABS: PROTHROMBIN TIME 20.5 (9.2-11.2)
[2016-06-04 12:43] VITALS: BP 132/81
[2016-06-04 15:54] VITALS: BP 109/58
[2016-06-04 20:00] VITALS: BP 118/58
[2016-06-05] VITALS: BP 99/58
[2016-06-05 04:00] VITALS: BP 94/61
[2016-06-05 07:45] LABS: HEMATOCRIT 29.5 % (36.0-46.0); MCH 33.9 PG (29.0-34.0); MCHC 31.9 G/DL (30.0-36.0); MCV 106.5 FL (83-99); MEAN PLAT.VOLUME 12.8 uM^3 (9.5-12.4); PLATELET COUNT 144 K/uL (156-360); RBC DIS.WIDTH-CV 19.7 % (11.8-14.6); RBC DIS.WIDTH-SD 78.2 % (39-53); RED BLOOD COUNT 2.77 M/uL (3.80-5.20); WHITE BLOOD COUNT 5.6 K/uL (4.1-10.2)
[2016-06-05 08:03] VITALS: BP 128/57
[2016-06-05 08:27] VITALS: BP 128/57
[2016-06-05 08:44] LABS: ANION GAP 12 MEQ/L (2-14); CHLORIDE 104 MEQ/L (99-109); GFR ESTIMATE (CALCULATED) 38 mL/min/; GLUCOSE 106 mg/dL (70-99); POTASSIUM 3.9 MEQ/L (3.7-5.4); SAMPLE HEMOLYSIS CHECK 0; SAMPLE ICTERIC CHECK 0; SAMPLE LIPEMIA CHECK 0; SODIUM 141 MEQ/L (136-147); UREA NITROGEN (BUN) 21 mg/dL (9-23)
[2016-06-05 11:16] VITALS: BP 100/55
[2016-06-05] MEDS ORDERED: PRILOSEC10 MG PO (11:58)
[2016-06-05 12:30] VITALS: BP 107/57
[2016-06-05 14:05] LABS: INTER. NORMALIZED RATIO 1.9
== END 2016-06-05 13:26 | disposition home health service (06) | DRG 377 ==
LOC: EME 14:45 → 5SOUTH 18:54 → EDOF 18:54 → 5SOUTH 20:38
PROVIDERS: Emergency Medicine; Hospitalist; Internal Medicine; Internal Medicine Gastroenterology
PROC: 30233N1 Transfusion of Nonautologous Red Blood Cells into Peripheral Vein, Percutaneous Approach (ICD-10-PCS; principal; 2016-06-02)
DX: K92.2 Gastrointestinal hemorrhage, unspecified (principal); I48.2 Chronic atrial fibrillation; Z79.01 Long term (current) use of anticoagulants; Z95.2 Presence of prosthetic heart valve; I13.0 Hypertensive heart and chronic kidney disease with heart failure and stage 1 through stage 4 chronic kidney disease, or unspecified chronic kidney disease; N18.3 Chronic kidney disease, stage 3 (moderate); I50.33 Acute on chronic diastolic (congestive) heart failure; M10.9 Gout, unspecified; E87.6 Hypokalemia; K21.9 Gastro-esophageal reflux disease without esophagitis; I25.10 Atherosclerotic heart disease of native coronary artery without angina pectoris; E78.00 Pure hypercholesterolemia, unspecified; M81.0 Age-related osteoporosis without current pathological fracture; R73.9 Hyperglycemia, unspecified; Z96.641 Presence of right artificial hip joint; D64.9 Anemia, unspecified; I27.2 Other secondary pulmonary hypertension; I08.3 Combined rheumatic disorders of mitral, aortic and tricuspid valves; E78.5 Hyperlipidemia, unspecified; I42.0 Dilated cardiomyopathy
CPT/HCPCS: 71010; 71020; 80048; 80053; 81003; 82272; 82607; 82668 90; 82746; 83540; 83880; 84466; 84484; 85014; 85018; 85025; 85027; 85610; 85730; 86900; 86901; 86920; 93306; 99281; 99285; C9113; J1940; P9016

== ENCOUNTER 2016-06-27 13:44 | Inpatient (IN) | payer OTHER ==
[~2016-06-27] VITALS: Ht 167.6 cm; Wt 75.3 kg
[~2016-06-27 13:44] MED LIST changes: +LO-DOSE ASPIRIN81 M1 PO; +MELATONIN1 MG PO; +PRILOSEC10 MG PO
[2016-06-27] MEDS ORDERED: POTASSIUM CHLO20 ME1 PO (14:44)
[2016-06-27 15:10] LABS: HEMATOCRIT 36.5 % (36.0-46.0); MCHC 32.1 G/DL (30.0-36.0); MCV 106.1 FL (83-99); MEAN PLAT.VOLUME 14.7 uM^3 (9.5-12.4); NRBC (%) 0.2 /100 WBC (0-0); PLATELET COUNT 119 K/uL (156-360); RBC DIS.WIDTH-CV 17.2 % (11.8-14.6); RBC DIS.WIDTH-SD 67.7 % (39-53); RED BLOOD COUNT 3.44 M/uL (3.80-5.20)
[2016-06-27 15:14] LABS: CHLORIDE 105 mEq/L (99-109); SODIUM 136 mEq/L (136-147)
[2016-06-27 15:16] LABS: GLUCOSE 122 mg/dL (70-99)
[2016-06-27 15:17] LABS: ANION GAP 12 MEQ/L (2-14)
[2016-06-27 15:18] LABS: WHITE BLOOD COUNT 8.4 K/uL (4.1-10.2)
[2016-06-27 15:19] LABS: GFR ESTIMATE (CALCULATED) 25 mL/min/
[2016-06-27 15:20] LABS: UREA NITROGEN (BUN) 40 mg/dL (9-23)
[2016-06-27 15:39] LABS: TROP-I INTERPRETATION NEGATIVE; TROPONIN-I 0.11 ng/mL (0.0-0.30)
[2016-06-27 16:23] LABS: ADD MIUA? YES; BILIRUBIN NEGATIVE; BLOOD NEGATIVE; COLOR YELLOW ((YELLOW)); GLUCOSE (STRIP) NEGATIVE; KETONES NEGATIVE; LEUKOCYTES TRACE; NITRITE NEGATIVE; PROTEIN (STRIP) NEGATIVE; SPECIFIC GRAVITY 1.012 (1.000-1.030); UROBILINOGEN 0.2 MG/DL (0.2-1.0)
[2016-06-27] MEDS ORDERED: WARFARIN SODIUM3 MG PO (16:28)
[2016-06-27] MEDS ORDERED: TESSALON200 MG PO (16:29)
[2016-06-27 16:52] LABS: INTER. NORMALIZED RATIO 2.7; PROTHROMBIN TIME 28.8 (9.2-11.2)
[2016-06-27 16:59] LABS: BACTERIA RARE /HPF; EPITHELIAL CELLS RARE /HPF; HYALINE CASTS 30-40 /LPF; MUCUS TRACE /LPF; RED BLOOD CELLS NONE SEEN /HPF (0-5); UCUL ADDED? NO; WHITE BLOOD CELLS NONE SEEN /HPF (0-5); WHITE BLOOD CELLS CLUMP FEW /HPF (0-5)
[2016-06-27 21:03] LABS: BASE EXCESS -10.4 mEq/L (-3 to +3); BICARBONATE 17.2 mEq/L (22-26); CARBOXY HGB 1.9 % (0-5); METHEMOGLOBIN 0.8 % (0-1.5); PO2 87 mm Hg (80-100)
[2016-06-27 21:04] LABS: PCO2 44 mm Hg (35-45); SITE RB
[2016-06-27 21:07] LABS: DEVICE VENT; FI02 100 %; MECHANICAL RATE 14 resp/min; MODE AC; PEEP 5 CM/H20; TIDAL VOLUME 450 ML; TOTAL RESP RATE 14 resp/min
[2016-06-27 21:30] VITALS: BP 117/86
[2016-06-27 21:47] VITALS: BP 117/86
[2016-06-27 22:00] VITALS: BP 109/44
[2016-06-27 23:00] VITALS: BP 117/78
[2016-06-27 23:39] LABS: METH RESISTANT S AUREUS PCR NEGATIVE (NEGATIVE)
[2016-06-27 23:41] LABS: PROBE CHECK PASS; SPECIMEN PROCESSING CONTROL PASS
[2016-06-28] VITALS (10 sets, daily range): BP systolic 33–116; BP diastolic 21–68
[2016-06-28 07:26] LABS: INTER. NORMALIZED RATIO 3.1; PROTHROMBIN TIME 32.6 (9.2-11.2)
[2016-06-28 07:57] LABS: ANION GAP 14 MEQ/L (2-14); CHLORIDE 108 MEQ/L (99-109); GFR ESTIMATE (CALCULATED) 25 mL/min/; GLUCOSE 123 mg/dL (70-99); POTASSIUM 4.3 MEQ/L (3.7-5.4); SAMPLE HEMOLYSIS CHECK 0; SAMPLE ICTERIC CHECK 0; SAMPLE LIPEMIA CHECK 0; SODIUM 137 MEQ/L (136-147); UREA NITROGEN (BUN) 43 mg/dL (9-23)
[2016-06-28 08:13] LABS: EOSINOPHIL (%) 0 % (0-5); IMMATURE GRANULOCYTE (%) 0.7 % (0.0-0.7); IMMATURE GRANULOCYTE COUNT 0.1 K/uL; INSTRUMENT ABS NEUTROPHIL CT 10.5 K/uL; LYMPHOCYTE COUNT 2.2 K/uL (1.0-2.8); MCH 33.3 PG (29.0-34.0); MCHC 31.1 G/DL (30.0-36.0); MONOCYTE (%) 14.2 % (3-12); MONOCYTE COUNT 2.1 K/uL (0-0.8); NEUTROPHIL (%) 70.1 % (45-76); NEUTROPHIL COUNT 10.5 K/uL (1.8-6.4); NRBC (%) 0.1 /100 WBC (0-0); RBC DIS.WIDTH-CV 17.1 % (11.8-14.6); RBC DIS.WIDTH-SD 68.3 % (39-53); RED BLOOD COUNT 3.27 M/uL (3.80-5.20)
[2016-06-28 08:23] LABS: WHITE BLOOD COUNT 14.9 K/uL (4.1-10.2)
[2016-06-28 09:27] LABS: MEAN PLAT.VOLUME 14.1 uM^3 (9.5-12.4); PLATELET COUNT 169 K/uL (156-360)
[2016-06-28 10:49] LABS: INTERNAL CONTROL VALID? YES
[2016-06-28 11:20] LABS: BASE EXCESS -19.3 mEq/L (-3 to +3); CARBOXY HGB 1.9 % (0-5); METHEMOGLOBIN 1.2 % (0-1.5); PO2 79 mm Hg (80-100)
[2016-06-28 11:21] LABS: BICARBONATE 8.5 mEq/L (22-26); COMMENTS - BLOOD GASES C+; DEVICE 840; FI02 100 %; MECHANICAL RATE 14 resp/min; MODE A/C; PCO2 26 mm Hg (35-45); PEEP 5 CM/H20; SITE ALINE; TIDAL VOLUME 450 ML; TOTAL RESP RATE 28 resp/min
[2016-06-28 11:22] LABS: pH 7.12 (7.35-7.45)
== END 2016-06-28 19:20 | DRG 208 ==
LOC: EME 13:44 → EDOF 16:23 → 4WEST 16:23 → EDOF 20:20 → 4WEST 21:22
PROVIDERS: Anesthesiology; Emergency Medicine; Internal Medicine
PROC: 5A1935Z Respiratory Ventilation, Less than 24 Consecutive Hours (ICD-10-PCS; principal; 2016-06-27)
PROC: 0BH17EZ Insertion of Endotracheal Airway into Trachea, Via Natural or Artificial Opening (ICD-10-PCS; 2016-06-27)
PROC: 03HB33Z Insertion of Infusion Device into Right Radial Artery, Percutaneous Approach (ICD-10-PCS; 2016-06-27)
PROC: 05H533Z Insertion of Infusion Device into Right Subclavian Vein, Percutaneous Approach (ICD-10-PCS; 2016-06-27)
PROC: 5A12012 Performance of Cardiac Output, Single, Manual (ICD-10-PCS; 2016-06-28)
DX: J96.01 Acute respiratory failure with hypoxia (principal); J18.9 Pneumonia, unspecified organism; I42.0 Dilated cardiomyopathy; Z66 Do not resuscitate; Z51.5 Encounter for palliative care; J98.11 Atelectasis; J90 Pleural effusion, not elsewhere classified; N17.9 Acute kidney failure, unspecified; I95.9 Hypotension, unspecified; I48.2 Chronic atrial fibrillation; N18.3 Chronic kidney disease, stage 3 (moderate); I25.10 Atherosclerotic heart disease of native coronary artery without angina pectoris; K21.9 Gastro-esophageal reflux disease without esophagitis; I12.9 Hypertensive chronic kidney disease with stage 1 through stage 4 chronic kidney disease, or unspecified chronic kidney disease; E86.0 Dehydration; D69.6 Thrombocytopenia, unspecified; G43.909 Migraine, unspecified, not intractable, without status migrainosus; Z96.653 Presence of artificial knee joint, bilateral; I34.0 Nonrheumatic mitral (valve) insufficiency; M10.9 Gout, unspecified; Z96.641 Presence of right artificial hip joint; E87.8 Other disorders of electrolyte and fluid balance, not elsewhere classified; I27.2 Other secondary pulmonary hypertension; Z95.0 Presence of cardiac pacemaker; Z88.5 Allergy status to narcotic agent; Z79.01 Long term (current) use of anticoagulants; Z85.3 Personal history of malignant neoplasm of breast; Z90.11 Acquired absence of right breast and nipple; Z82.49 Family history of ischemic heart disease and other diseases of the circulatory system
CPT/HCPCS: 36600; 71010; 71020; 71250; 80048; 81003; 82803; 83605; 84484; 85025; 85027; 85610; 87040; 87070; 87205; 87449; 87641; 93005; 93306; 94002; 94003; 94640; 94640 76; 94667; 99202; 99281; 99285; J0171; J0282; J0330; J0456; J2370; J2405; J2543; J3010; J3370; J7030; J7050